=== PATIENT | female | born 2000 | race Caucasian/White ===

== ENCOUNTER 2023-02-08 13:09 | Inpatient (IN) | payer BC ==
[~2023-02-08] VITALS: Ht 152.4 cm; Wt 95.7 kg
[2023-02-08] MEDS ORDERED: OXYTOCIN 20 UNITS in LACTATED RINGERS 1,000 ML IV SCH ×2 (13:45→23:45)
[2023-02-08] MEDS ORDERED: ONDANSETRON 4 MG/2 ML VIAL IVP PRN (13:45)
[2023-02-08] MEDS ORDERED: MORPHINE SULFATE 5 MG/ML VIAL IVP PRN (13:45)
[2023-02-08] MEDS ORDERED: METHYLERGONOVINE 0.2 MG/ML AMP IM PRN ×2 (13:45→23:35)
[2023-02-08 14:19] LABS: BASOPHILS % (AUTO) 0.2 % (0.0-2.0); EOSINOPHILS % (AUTO) 0.2 % (0.0-4.0); HEMATOCRIT 34.5 % (36-48); HEMOGLOBIN 11.6 g/dL (12.0-16.0); LYMPHOCYTES # (AUTO) 1.3 K/uL (2.5-16.5); LYMPHOCYTES % (AUTO) 13.4 % (20.5-51.1); MEAN CORPUSCULAR HEMOGLOBIN 25 pg (27-31); MEAN CORPUSCULAR HGB CONC 34 g/dL (33-37); MONOCYTES # (AUTO) 0.7 K/uL (0.8-1.0); MONOCYTES % (AUTO) 6.8 % (1.7-9.3); NEUTROPHILS % (AUTO) 79.4 % (42.2-75.2); PLATELET COUNT (AUTO) 285 K/uL (140-450); RED CELL DISTRIBUTION WIDTH 15.2 % (11.6-13.7)
[2023-02-08 14:26] LABS: APPEARANCE,URINE CLEAR (CLEAR); BILIRUBIN,URINE NEGATIVE (NEGATIVE); BLOOD, URINE 3+ (NEGATIVE); COLOR,URINE YELLOW (YELLOW); LEUKOCYTE ESTERASE ,URINE TRACE (NEGATIVE); NITRITE, URINE NEGATIVE (NEGATIVE); UGLUCOSE NEGATIVE (NEGATIVE)
[2023-02-08 14:38] LABS: ALBUMIN 2.5 g/dL (3.4-5.0); CARBON DIOXIDE 24.5 mmol/L (21-32); CREATININE 0.6 mg/dL (0.6-1.3); POTASSIUM 3.5 mmol/L (3.5-5.1); TOTAL BILIRUBIN 0.4 mg/dL (0.0-1.0)
[2023-02-08 14:43] LABS: RBC,URINE 20-50 /HPF (0-5)
[2023-02-08 14:48] LABS: PROTHROMBIN TIME 9.2 secs (10.8-13.4)
[2023-02-08] MEDS: LACTATED RINGERS 1,000 ML IV SCH ×3 (14:48→21:45)
[2023-02-08 15:05] LABS: BARBITURATE, URINE NEGATIVE ng/ml (NEG <=200); BENZODIAZEPINE, URINE NEGATIVE ng/mL (NEG <=200); CANNABINOID, URINE NEGATIVE ng/mL (NEG <=50); COCAINE, URINE NEGATIVE ng/mL (NEG <=300); OPIATE, URINE NEGATIVE ng/mL (NEG <=2000); PHENCYCLIDINE SCREEN,URINE NEGATIVE ng/mL (NEG <=25)
--- NOTE | 2023-02-08 15:13 | NUR ---
PATIENT HAS BEEN SCREENED AND CATEGORIZED LOW NUTRITION RISK. PATIENT WILL BE SEEN WITHIN 7 DAYS OF ADMISSION. 02/15/[address]
[2023-02-08] MEDS ORDERED: OXYTOCIN 20 UNITS/LR PREMIX 1,000 ML IV ONE ×2 (15:29→23:56)
[2023-02-08 16:08] VITALS: BP 120/71; PULSE 99; RESP 17; TEMP 98.7
[2023-02-08] MEDS ORDERED: ROPIVACAINE 0.2%/NS PREMIX 200 ML EPI ONE (17:24)
[2023-02-08] MEDS ORDERED: fentaNYL citrate 0.05 MG/ML VIAL ONE (17:24)
[2023-02-08] MEDS ORDERED: TERBUTALINE 1 MG/ML VIAL SUBQ SCH (22:35)
[2023-02-08] MEDS ORDERED: TERBUTALINE 1 MG/ML VIAL SUBQ ONE (22:37)
[2023-02-08] MEDS ORDERED: LIDOCAINE MPF 2% 100 MG/5 ML VIAL INJ ONE (23:00)
[2023-02-08] MEDS ORDERED: MORPHINE PRES FREE 10 MG/10 ML AMP IV ONE (23:00)
[2023-02-08] MEDS ORDERED: ceFAZolin 2,000 MG VIAL ONE (23:13)
[2023-02-08] MEDS ORDERED: TEMAZEPAM 15 MG CAP PO PRN (23:35)
[2023-02-08] MEDS ORDERED: SIMETHICONE 80 MG TAB.CHEW PO PRN (23:35)
[2023-02-08] MEDS ORDERED: oxyCODONE/APAP 5/325 MG 1 TAB TAB PO PRN (23:35)
[2023-02-08] MEDS ORDERED: NALOXONE 0.4 MG/ML VIAL IVP PRN (23:45)
[2023-02-08] MEDS ORDERED: KETOROLAC 30 MG/ML VIAL IVP PRN (23:45)
[2023-02-08] MEDS ORDERED: HYDROmorphone 1 MG/ML AMP IVP PRN (23:45)
[2023-02-08] MEDS ORDERED: diphenhydrAMINE 50 MG/ML VIAL IVP PRN (23:45)
[2023-02-08] MEDS ORDERED: diphenhydrAMINE 50 MG/ML VIAL ONE (23:56)
--- NOTE | 2023-02-09 00:11 | NUR ---
CALLED TO L&D AT 2320 TO ATTEND . BABY BOY BORN AT 2337 WITHOUT INCIDENT. SCORES WERE 8 AND 9.
[2023-02-09 05:27] LABS: BASOPHILS % (AUTO) 0.3 % (0.0-2.0); HEMATOCRIT 29.7 % (36-48); HEMOGLOBIN 10.1 g/dL (12.0-16.0); LYMPHOCYTES # (AUTO) 1.3 K/uL (2.5-16.5); LYMPHOCYTES % (AUTO) 10.9 % (20.5-51.1); MEAN CORPUSCULAR HEMOGLOBIN 25 pg (27-31); MEAN CORPUSCULAR HGB CONC 34 g/dL (33-37); MONOCYTES # (AUTO) 0.9 K/uL (0.8-1.0); MONOCYTES % (AUTO) 7.3 % (1.7-9.3); NEUTROPHILS # (AUTO) 9.9 K/uL (1.8-7.7); NEUTROPHILS % (AUTO) 81.5 % (42.2-75.2); PLATELET COUNT (AUTO) 234 K/uL (140-450); RED BLOOD CELL COUNT(AUTO) 4.02 MIL/uL (4.20-5.40); WHITE BLOOD COUNT (AUTO) 12.1 K/uL (4.8-10.8)
[2023-02-09] MEDS: OXYTOCIN 20 UNITS in LACTATED RINGERS 1,000 ML IV SCH ×2 (06:38→14:35)
[2023-02-09] MEDS: KETOROLAC 30 MG/ML VIAL IVP PRN ×2 (13:32→20:52)
[2023-02-09] MEDS ORDERED: OXYTOCIN 20 UNITS/LR PREMIX 1,000 ML IV ONE (14:29)
[2023-02-09] MEDS ORDERED: CAMERA MC ONE (19:41)
[2023-02-09] MEDS ORDERED: DOCUSATE SOD/SENNA 50/8.6 MG 1 TAB PO SCH (21:00)
[2023-02-09] MEDS: oxyCODONE/APAP 5/325 MG 1 TAB TAB PO PRN (23:34)
[2023-02-10] MEDS: IBUPROFEN 800 MG TAB PO PRN ×2 (04:02→10:17)
[2023-02-10] MEDS: oxyCODONE/APAP 5/325 MG 1 TAB TAB PO PRN ×3 (08:21→16:37)
[2023-02-10] MEDS ORDERED: bisacodyL 10 MG SUPP RC PRN (11:45)
== END 2023-02-10 17:45 | disposition home or self-care (01) | DRG 788 ==
LOC: MLD 13:09 → OBSVTOIN 13:09 → MFCC 02-09 00:55
PROVIDERS: ADMIT Obstetrics & Gynecology; ATTEND Obstetrics & Gynecology
PROC: 10D00Z1 Extraction of Products of Conception, Low, Open Approach (ICD-10-PCS; principal; 2023-02-08 23:00)
DX: O76 Abnormality in fetal heart rate and rhythm complicating labor and delivery (principal); Z3A.39 39 weeks gestation of pregnancy; Z37.0 Single live birth; Z20.822 Contact with and (suspected) exposure to COVID-19
CPT/HCPCS: 36415; 51702; 80053; 80305; 81001; 85025; 85610; 85730; 86592; 86886; 86900; 86901; 87086; J1200; J1885; J2001; J2270; J2590; J2795; J3010; J3105; J7120